=== PATIENT | male | born 2000 | race Caucasian/White ===

== ENCOUNTER 2022-09-23 13:42 | Emergency (ER) | payer BC ==
[~2022-09-23] VITALS: Ht 170.1 cm; Wt 136.1 kg
[2022-09-23 13:57] VITALS: BP 137/85
[2022-09-23] MEDS ORDERED: PREDNISONE50 MG PO (15:32)
== END 2022-09-23 16:07 | disposition home or self-care (01) ==
LOC: ED 13:42
DX: T63.441A Toxic effect of venom of bees, accidental (unintentional), initial encounter (principal); Z91.030 Bee allergy status; Z98.890 Other specified postprocedural states; Y92.89 Other specified places as the place of occurrence of the external cause